=== PATIENT | male | born 1970 | race Two or more races ===

== ENCOUNTER 2021-05-29 15:53 | Inpatient (IN) | payer OTHER ==
[~2021-05-29] VITALS: Ht 170.2 cm; Wt 109.1 kg
[2021-05-29] MEDS ORDERED: normal saline 1000ML IV soln IV ONE (16:30)
[2021-05-29 16:48] LABS: BASOPHILS % (AUTO) 1.5 % (0-1); EOSINOPHILS % (AUTO) 1.3 % (0-6); LYMPHOCYTES # (AUTO) 0.5 X10'3 (1.1-4.8); LYMPHOCYTES % (AUTO) 16.6 % (21-51); MEAN CORPUSCULAR HGB CONC 29.6 g/dL (33.0-36.5); MEAN CORPUSCULAR VOLUME 64.4 FL (78-98); MEAN PLATELET VOLUME 8.5 FL (7.4-10.4); MONOCYTES # (AUTO) 0.4 X10'3 (0-0.9); MONOCYTES % (AUTO) 13.1 % (2-12); NEUTROPHILS # (AUTO) 1.9 X10'3 (1.8-7.7); NEUTROPHILS % (AUTO) 67.5 % (42-75); PLATELET COUNT 85 X10'3 (140-440); RED BLOOD COUNT 2.86 X10'6 (4.70-6.10); RED CELL DISTRIBUTION WIDTH 18.7 % (11.5-14.5); WHITE BLOOD COUNT 2.8 X10'3 (4.5-11.0)
[2021-05-29 16:51] LABS: HEMATOCRIT 18.4 % (42.0-52.0); HEMOGLOBIN 5.4 g/dl (14.0-17.9)
[2021-05-29 17:02] LABS: APTT 27 SECONDS (22-32)
[2021-05-29 17:03] LABS: ALANINE AMINOTRANSFERASE 30 U/L (12-78); ALBUMIN 3.7 G/DL (3.4-5.0); ALBUMIN/GLOBULIN RATIO 0.9 (1.1-1.5); ALKALINE PHOSPHATASE 183 IU/L (46-116); ANION GAP 9 (8-16); ASPARTATE AMINO TRANSFERASE 27 U/L (10-37); BILIRUBIN,TOTAL 0.8 MG/DL (0.1-1.0); BLOOD UREA NITROGEN 7 MG/DL (7-18); BUN/CREATININE RATIO 7.1 (5.4-32.0); CALCIUM 8.3 MG/DL (8.5-10.1); CHLORIDE 95 MMOL/L (99-107); CREATININE 0.99 MG/DL (0.60-1.10); ETHANOL < 0.010 GM/DL (0.0-0.010); GLUCOSE 151 MG/DL (70-104); POTASSIUM 3.8 MMOL/L (3.5-5.1); SODIUM 129 MMOL/L (135-145); TOTAL CARBON DIOXIDE 24.6 MMOL/L (24-32); TOTAL PROTEIN 7.7 G/DL (6.4-8.2); eGFR 79 ML/MIN
[2021-05-29] MEDS ORDERED: ondansetron/PF 4mg/2ml inj IV PRN (17:20)
[2021-05-29] MEDS ORDERED: magnesium 4gm in 100ml NS 100 ML IV PRN (17:20)
[2021-05-29] MEDS ORDERED: potassium CL 10mEq/100ml bag 100 ML IV PRN (17:20)
[2021-05-29] MEDS ORDERED: magnesium 2GM in 50ml NS 50 ML IV PRN (17:20)
[2021-05-29] MEDS ORDERED: magnesium Cl slow-release 64mg tablet PO PRN (17:20)
[2021-05-29] MEDS ORDERED: potassium Cl 20 mEq SR tablet PO PRN ×2 (17:20)
[2021-05-29] MEDS ORDERED: acetaminophen 325mg tablet PO PRN (17:20)
[2021-05-29] MEDS: octreotide inj. 1,250 MCG in normal saline 250ml IV soln 243.75 ML IV SCH ×2 (17:25→19:50)
[2021-05-29] MEDS ORDERED: octreotide inj. 1,250 MCG in normal saline 250ml IV soln 250 ML IV SCH (17:30)
[2021-05-29] MEDS: pantoprazole 40MG/NS 100ML BAG 100 ML IV SCH ×2 (17:55→21:01)
[2021-05-29 17:58] LABS: TOTAL CELLS COUNTED 100
[2021-05-29 17:59] LABS: ANISOCYTOSIS 2+; MICROCYTOSIS 2+; PLATELET ESTIMATE DECREASED
[2021-05-29] MEDS ORDERED: iohexol 300mg/ml 100ml inj. ONE (18:00)
[2021-05-29 18:01] LABS: HYPOCHROMASIA 2+
[2021-05-29 18:02] LABS: POLYCHROMASIA FEW; ROULEAUX 1+; SCHISTOCYTES FEW
[2021-05-29 18:11] LABS: CLARITY,URINE CLEAR (Clear); COLOR,URINE YELLOW (Yellow); GLUCOSE, URINE NEGATIVE (Neg); KETONES,URINE NEGATIVE (Neg); LEUKOCYTE ESTERASE ,URINE NEGATIVE (Neg); NITRITES, URINE NEGATIVE (Neg); OCCULT BLOOD,URINE NEGATIVE (Neg); PROTEIN,URINE NEGATIVE (Neg); UROBILINOGEN,URINE 0.2 E.U/dL (0.2-1.0)
[2021-05-29 18:14] LABS: UA COLLECTION TYPE VOIDED
[2021-05-29 18:20] LABS: URINE AMPHETAMINE SCREEN NEGATIVE (Neg); URINE BARBITUATE SCREEN NEGATIVE (Neg); URINE BENZODIAZEPINES SCREEN NEGATIVE (Neg); URINE CANNABINOID SCREEN NEGATIVE (Neg); URINE COCAINE SCREEN NEGATIVE (Neg); URINE METHADONE SCREEN NEGATIVE (Neg); URINE OPIATE SCREEN NEGATIVE (Neg); URINE PHENCYCLIDINE SCREEN NEGATIVE (Neg)
[2021-05-29] MEDS ORDERED: PERFLUTREN PROTEIN-A MICROSPHR (Optison) 0.22 MG/ML 3ML VIAL IV ONE (18:30)
[2021-05-29] MEDS ORDERED: dextrose ORAL solution 15 GM/59 ML bottle PO PRN ×2 (18:35)
[2021-05-29] MEDS ORDERED: dextrose 50%-water 50ml dispensing syringe IV PRN ×2 (18:35)
[2021-05-29] MEDS ORDERED: MESSAGE TO PHARMACY PO ONE (18:35)
[2021-05-29] MEDS ORDERED: MESSAGE TO NURSING PO ONE (18:35)
[2021-05-29] MEDS ORDERED: glucagon, human recombinant 1mg kit SUBCUT PRN (18:35)
[2021-05-29] MEDS: insulin glargine (Lantus) pen - multi-dose SQ SCH (18:56)
[2021-05-29] MEDS: K and/or MAG REPLACEMENT MC SCH (19:51)
[2021-05-29] MEDS ORDERED: temazepam 15mg capsule PO PRN (21:00)
[2021-05-29] MEDS ORDERED: pantoprazole 40MG/D5 100ML BAG 100 ML IV SCH (21:00)
[2021-05-29] MEDS: barium sulfate 450ml oral suspension PO SCH (21:08)
[2021-05-29] MEDS: normal saline 1000ml 1,000 ML IV SCH (21:30)
[2021-05-29 23:50] VITALS: BP 133/78
[2021-05-30] VITALS (20 sets, daily range): BP systolic 114–151; BP diastolic 57–95
[2021-05-30] MEDS: acetaminophen 325mg tablet PO PRN ×3 (00:50→20:19)
[2021-05-30] MEDS: pantoprazole 40MG/NS 100ML BAG 100 ML IV SCH ×5 (01:35→21:46)
--- NOTE | 2021-05-30 06:30 | NUR ---
Stable throughout the night, no bowel movements. Tolerated 1 unit packed cells, 2nd unit infusing Addendum: 05/30/21 at 0720 by Mandi Aguero RN Noted to have significant sleep apnea
--- NOTE | 2021-05-30 06:40 | NUR ---
Patient in room PCU 3008. I have received report from GINI Raymond and had the opportunity to ask questions and assume patient care.
--- NOTE | 2021-05-30 07:00 | NUR ---
Change of shift report given to Maria Isabel RUBALCAVA Addendum: 05/30/21 at 0730 by Mandi Aguero RN Amended: Links added.
[2021-05-30] MEDS: normal saline 1000ml 1,000 ML IV SCH ×3 (07:36→21:46)
[2021-05-30] MEDS: K and/or MAG REPLACEMENT MC SCH ×2 (08:00→19:28)
[2021-05-30] MEDS: barium sulfate 450ml oral suspension PO SCH ×2 (08:15→09:50)
[2021-05-30] MEDS: insulin Lispro (HumaLOG) vial - multi-dose SQ SCH ×3 (09:31→19:33)
[2021-05-30] MEDS ORDERED: FLU VACC QS2021-22(6MOS UP)/PF 60 MCG/0.5 ML SYRINGE IM ONE (10:00)
[2021-05-30] MEDS ORDERED: SPIR100T5 PO (10:27)
[2021-05-30] MEDS ORDERED: METF-1203 PO (10:27)
[2021-05-30] MEDS ORDERED: PANT40TA54 PO (10:27)
[2021-05-30 10:48] LABS: ALANINE AMINOTRANSFERASE 25 U/L (12-78); ALBUMIN 3.3 G/DL (3.4-5.0); ALBUMIN/GLOBULIN RATIO 0.9 (1.1-1.5); ALKALINE PHOSPHATASE 159 IU/L (46-116); ANION GAP 9 (8-16); ASPARTATE AMINO TRANSFERASE 30 U/L (10-37); BILIRUBIN,TOTAL 1.2 MG/DL (0.1-1.0); BLOOD UREA NITROGEN 6 MG/DL (7-18); BUN/CREATININE RATIO 6.5 (5.4-32.0); CALCIUM 7.9 MG/DL (8.5-10.1); CHLORIDE 95 MMOL/L (99-107); CREATININE 0.93 MG/DL (0.60-1.10); GLUCOSE 191 MG/DL (70-104); POTASSIUM 3.9 MMOL/L (3.5-5.1); SODIUM 128 MMOL/L (135-145); TOTAL CARBON DIOXIDE 23.9 MMOL/L (24-32); TOTAL PROTEIN 6.8 G/DL (6.4-8.2); eGFR 85 ML/MIN
--- NOTE | 2021-05-30 11:55 | NUR ---
Diabetes consult: Noted A1C 8.9 currently w/ Tryoid and in isolation. Written DM education w/ RD contact info placed in pt chart. Addendum: 05/30/21 at [address] Amended: Links added.
[2021-05-30 12:16] LABS: BASOPHILS % (AUTO) 1.6 % (0-1); EOSINOPHILS % (AUTO) 0.7 % (0-6); HEMATOCRIT 22.1 % (42.0-52.0); LYMPHOCYTES # (AUTO) 0.6 X10'3 (1.1-4.8); LYMPHOCYTES % (AUTO) 22.4 % (21-51); MEAN CORPUSCULAR HEMOGLOBIN 21.1 PG (27.0-31.0); MEAN CORPUSCULAR HGB CONC 30.5 g/dL (33.0-36.5); MEAN CORPUSCULAR VOLUME 69.3 FL (78-98); MEAN PLATELET VOLUME 8.5 FL (7.4-10.4); MONOCYTES # (AUTO) 0.5 X10'3 (0-0.9); MONOCYTES % (AUTO) 18.6 % (2-12); NEUTROPHILS # (AUTO) 1.5 X10'3 (1.8-7.7); NEUTROPHILS % (AUTO) 56.7 % (42-75); PLATELET COUNT 75 X10'3 (140-440); RED BLOOD COUNT 3.19 X10'6 (4.70-6.10); RED CELL DISTRIBUTION WIDTH 23.4 % (11.5-14.5); WHITE BLOOD COUNT 2.6 X10'3 (4.5-11.0)
[2021-05-30 12:30] LABS: HEMOGLOBIN 6.7 g/dl (14.0-17.9)
[2021-05-30 13:14] LABS: ANISOCYTOSIS 3+; MICROCYTOSIS 2+; PLATELET ESTIMATE DECREASED; TOTAL CELLS COUNTED 100
[2021-05-30 13:22] LABS: HYPOCHROMASIA 2+
[2021-05-30 13:25] LABS: POLYCHROMASIA FEW; ROULEAUX 1+; SCHISTOCYTES FEW
[2021-05-30 13:26] LABS: ELLIPTOCYTES FEW
[2021-05-30] MEDS: piperacillin/tazo 4.5gm/100ml 100 ML IV SCH (17:10)
--- NOTE | 2021-05-30 18:45 | NUR ---
Patient in room PCU 3008. I have received report from Kate RUBALCAVA and had the opportunity to ask questions and assume patient care.
--- NOTE | 2021-05-30 18:50 | NUR ---
Problems reprioritized. Patient report given, questions answered & plan of care reviewed with GINI Chandler.
[2021-05-30] MEDS ORDERED: magnesium hydroxide 30ml (MOM) UD suspension PO ONE (20:05)
[2021-05-30 20:58] LABS: BASOPHILS # (AUTO) 0.1 X10'3 (0-0.2); BASOPHILS % (AUTO) 1.6 % (0-1); EOSINOPHILS % (AUTO) 1.4 % (0-6); HEMATOCRIT 24.9 % (42.0-52.0); HEMOGLOBIN 7.6 g/dl (14.0-17.9); LYMPHOCYTES # (AUTO) 0.8 X10'3 (1.1-4.8); LYMPHOCYTES % (AUTO) 26.2 % (21-51); MEAN CORPUSCULAR HEMOGLOBIN 21.9 PG (27.0-31.0); MEAN CORPUSCULAR HGB CONC 30.5 g/dL (33.0-36.5); MEAN CORPUSCULAR VOLUME 71.6 FL (78-98); MEAN PLATELET VOLUME 8.4 FL (7.4-10.4); MONOCYTES # (AUTO) 0.4 X10'3 (0-0.9); MONOCYTES % (AUTO) 13.6 % (2-12); NEUTROPHILS # (AUTO) 1.9 X10'3 (1.8-7.7); NEUTROPHILS % (AUTO) 57.2 % (42-75); PLATELET COUNT 79 X10'3 (140-440); RED BLOOD COUNT 3.47 X10'6 (4.70-6.10); RED CELL DISTRIBUTION WIDTH 24.6 % (11.5-14.5); WHITE BLOOD COUNT 3.2 X10'3 (4.5-11.0)
[2021-05-30] MEDS: insulin glargine (Lantus) pen - multi-dose SQ SCH (21:00)
[2021-05-30 21:48] LABS: PLATELET ESTIMATE DECREASED
[2021-05-30 21:49] LABS: ANISOCYTOSIS 3+; MICROCYTOSIS 1+; POLYCHROMASIA FEW
[2021-05-30 21:50] LABS: HYPOCHROMASIA 1+; ROULEAUX 1+; SCHISTOCYTES FEW
[2021-05-30 21:51] LABS: ELLIPTOCYTES FEW
--- NOTE | 2021-05-30 21:55 | NUR ---
Pt is NPO after midnight ; no Lantus insulin given
[2021-05-31] VITALS (13 sets, daily range): BP systolic 126–154; BP diastolic 73–92
[2021-05-31] MEDS: piperacillin/tazo 4.5gm/100ml 100 ML IV SCH ×4 (00:24→23:35)
[2021-05-31] MEDS: pantoprazole 40MG/NS 100ML BAG 100 ML IV SCH ×5 (00:34→21:18)
--- NOTE | 2021-05-31 06:45 | NUR ---
Patient report given to Lázaro RUBALCAVA
[2021-05-31 06:54] LABS: BASOPHILS % (AUTO) 1.3 % (0-1); EOSINOPHILS % (AUTO) 1.2 % (0-6); HEMATOCRIT 24.7 % (42.0-52.0); HEMOGLOBIN 7.7 g/dl (14.0-17.9); LYMPHOCYTES # (AUTO) 0.9 X10'3 (1.1-4.8); LYMPHOCYTES % (AUTO) 26.8 % (21-51); MEAN CORPUSCULAR HEMOGLOBIN 22.3 PG (27.0-31.0); MEAN CORPUSCULAR HGB CONC 31.2 g/dL (33.0-36.5); MEAN CORPUSCULAR VOLUME 71.4 FL (78-98); MEAN PLATELET VOLUME 8.4 FL (7.4-10.4); MONOCYTES # (AUTO) 0.4 X10'3 (0-0.9); MONOCYTES % (AUTO) 12.6 % (2-12); NEUTROPHILS # (AUTO) 1.9 X10'3 (1.8-7.7); NEUTROPHILS % (AUTO) 58.1 % (42-75); PLATELET COUNT 77 X10'3 (140-440); RED BLOOD COUNT 3.46 X10'6 (4.70-6.10); WHITE BLOOD COUNT 3.3 X10'3 (4.5-11.0)
[2021-05-31 07:10] LABS: ALANINE AMINOTRANSFERASE 25 U/L (12-78); ALBUMIN 3.1 G/DL (3.4-5.0); ALBUMIN/GLOBULIN RATIO 0.8 (1.1-1.5); ALKALINE PHOSPHATASE 142 IU/L (46-116); ANION GAP 9 (8-16); ASPARTATE AMINO TRANSFERASE 31 U/L (10-37); BILIRUBIN,TOTAL 1.2 MG/DL (0.1-1.0); BLOOD UREA NITROGEN 5 MG/DL (7-18); BUN/CREATININE RATIO 5.4 (5.4-32.0); CALCIUM 7.7 MG/DL (8.5-10.1); CHLORIDE 96 MMOL/L (99-107); CREATININE 0.93 MG/DL (0.60-1.10); GLUCOSE 138 MG/DL (70-104); POTASSIUM 3.9 MMOL/L (3.5-5.1); SODIUM 130 MMOL/L (135-145); TOTAL CARBON DIOXIDE 25.4 MMOL/L (24-32); TOTAL PROTEIN 6.9 G/DL (6.4-8.2); eGFR 85 ML/MIN
[2021-05-31] MEDS: K and/or MAG REPLACEMENT MC SCH ×2 (07:39→19:40)
[2021-05-31] MEDS: normal saline 1000ml 1,000 ML IV SCH ×2 (07:39→19:20)
[2021-05-31 15:43] LABS: BASOPHILS % (AUTO) 0.9 % (0-1); EOSINOPHILS % (AUTO) 0.9 % (0-6); HEMATOCRIT 26.2 % (42.0-52.0); LYMPHOCYTES # (AUTO) 0.7 X10'3 (1.1-4.8); LYMPHOCYTES % (AUTO) 21.9 % (21-51); MEAN CORPUSCULAR HGB CONC 30.6 g/dL (33.0-36.5); MEAN CORPUSCULAR VOLUME 71.9 FL (78-98); MEAN PLATELET VOLUME 8.4 FL (7.4-10.4); MONOCYTES # (AUTO) 0.4 X10'3 (0-0.9); MONOCYTES % (AUTO) 11.9 % (2-12); NEUTROPHILS % (AUTO) 64.4 % (42-75); PLATELET COUNT 86 X10'3 (140-440); RED BLOOD COUNT 3.64 X10'6 (4.70-6.10); RED CELL DISTRIBUTION WIDTH 24.9 % (11.5-14.5); WHITE BLOOD COUNT 3.1 X10'3 (4.5-11.0)
[2021-05-31] MEDS ORDERED: fentaNYL/PF 50MCG/1 ML 2ML syringe ONE (15:59)
[2021-05-31] MEDS ORDERED: diphenhydrAMINE 50 mg/ml inj ONE (15:59)
[2021-05-31] MEDS ORDERED: MIDAZolam 1 MG/ML 5ML VIAL ONE (15:59)
[2021-05-31] MEDS ORDERED: LIDOcaine Viscous 15ml cup ONE (16:00)
[2021-05-31] MEDS: octreotide inj. 1,250 MCG in normal saline 250ml IV soln 243.75 ML IV SCH (17:25)
[2021-05-31] MEDS: insulin glargine (Lantus) pen - multi-dose SQ SCH (19:40)
[2021-06-01] MEDS: pantoprazole 40MG/NS 100ML BAG 100 ML IV SCH ×2 (02:35→07:55)
[2021-06-01] MEDS: normal saline 1000ml 1,000 ML IV SCH ×2 (05:04→10:12)
[2021-06-01 06:00] VITALS: BP 125/65
[2021-06-01 07:00] VITALS: BP 119/79
[2021-06-01 07:25] LABS: BASOPHILS % (AUTO) 0.6 % (0-1); EOSINOPHILS % (AUTO) 1.1 % (0-6); HEMATOCRIT 25.9 % (42.0-52.0); HEMOGLOBIN 7.9 g/dl (14.0-17.9); LYMPHOCYTES # (AUTO) 0.8 X10'3 (1.1-4.8); MEAN CORPUSCULAR HGB CONC 30.4 g/dL (33.0-36.5); MEAN CORPUSCULAR VOLUME 72.2 FL (78-98); MEAN PLATELET VOLUME 8.2 FL (7.4-10.4); MONOCYTES # (AUTO) 0.7 X10'3 (0-0.9); MONOCYTES % (AUTO) 16.1 % (2-12); NEUTROPHILS # (AUTO) 2.6 X10'3 (1.8-7.7); NEUTROPHILS % (AUTO) 62.2 % (42-75); PLATELET COUNT 86 X10'3 (140-440); RED BLOOD COUNT 3.58 X10'6 (4.70-6.10); RED CELL DISTRIBUTION WIDTH 25.4 % (11.5-14.5); WHITE BLOOD COUNT 4.2 X10'3 (4.5-11.0)
[2021-06-01 07:49] LABS: ALANINE AMINOTRANSFERASE 26 U/L (12-78); ALBUMIN 3.2 G/DL (3.4-5.0); ALBUMIN/GLOBULIN RATIO 0.8 (1.1-1.5); ALKALINE PHOSPHATASE 137 IU/L (46-116); ANION GAP 9 (8-16); ASPARTATE AMINO TRANSFERASE 32 U/L (10-37); BILIRUBIN,TOTAL 0.9 MG/DL (0.1-1.0); BLOOD UREA NITROGEN 4 MG/DL (7-18); BUN/CREATININE RATIO 4.6 (5.4-32.0); CALCIUM 7.6 MG/DL (8.5-10.1); CHLORIDE 99 MMOL/L (99-107); CREATININE 0.87 MG/DL (0.60-1.10); GLUCOSE 152 MG/DL (70-104); POTASSIUM 3.8 MMOL/L (3.5-5.1); SODIUM 134 MMOL/L (135-145); TOTAL CARBON DIOXIDE 26.4 MMOL/L (24-32); TOTAL PROTEIN 7.2 G/DL (6.4-8.2); eGFR > 90 ML/MIN
[2021-06-01] MEDS: piperacillin/tazo 4.5gm/100ml 100 ML IV SCH (07:55)
[2021-06-01] MEDS: K and/or MAG REPLACEMENT MC SCH (08:00)
[2021-06-01 10:56] LABS: TOTAL CELLS COUNTED 100
[2021-06-01 10:57] LABS: ANISOCYTOSIS 3+; GIANT PLATELET FEW; HYPOCHROMASIA 2+; MICROCYTOSIS 1+; PLATELET ESTIMATE DECREASED
[2021-06-01 10:58] LABS: ELLIPTOCYTES 1+
[2021-06-01 10:59] LABS: POLYCHROMASIA FEW; TEAR DROP CELLS FEW
[2021-06-01 11:00] VITALS: BP 128/88
[2021-06-01] MEDS: insulin Lispro (HumaLOG) vial - multi-dose SQ SCH (13:25)
--- NOTE | 2021-06-01 14:30 | NUR ---
discharge instructions was given and explained to patient prior to discharge. iv access discontinued with iv cannula complete and intact
[2021-06-01] MEDS ORDERED: pantoprazole 40mg Tablet.DR PO SCH (20:00)
== END 2021-06-01 14:47 | disposition home or self-care (01) | DRG 368 ==
LOC: ER 15:54 → UNDOADMIN 17:16 → ED HOLD 17:16 → EDBEDREQ 21:37 → PCU 3S 23:30 → ED HOLD 23:30
PROVIDERS: ADMIT Internal Medicine; ATTEND Internal Medicine
PROC: BW211ZZ Computerized Tomography (CT Scan) of Abdomen and Pelvis using Low Osmolar Contrast (ICD-10-PCS; 2021-05-29)
PROC: 30233N1 Transfusion of Nonautologous Red Blood Cells into Peripheral Vein, Percutaneous Approach (ICD-10-PCS; 2021-05-30)
PROC: 0DB68ZX Excision of Stomach, Via Natural or Artificial Opening Endoscopic, Diagnostic (ICD-10-PCS; principal; 2021-05-31)
DX: I85.01 Esophageal varices with bleeding (principal); U07.1 COVID-19; D61.818 Other pancytopenia; E87.1 Hypo-osmolality and hyponatremia; I50.32 Chronic diastolic (congestive) heart failure; D62 Acute posthemorrhagic anemia; K29.71 Gastritis, unspecified, with bleeding; K29.81 Duodenitis with bleeding; E11.9 Type 2 diabetes mellitus without complications; E66.01 Morbid (severe) obesity due to excess calories; F10.21 Alcohol dependence, in remission; I11.0 Hypertensive heart disease with heart failure; I86.4 Gastric varices; K70.30 Alcoholic cirrhosis of liver without ascites; R19.7 Diarrhea, unspecified; Z28.21 Immunization not carried out because of patient refusal; Z68.37 Body mass index [BMI] 37.0-37.9, adult
CPT/HCPCS: 36415; 36430; 43239; 71045; 74176; 74177; 80053; 80305; 80320; 81003; 82948; 83036; 83605; 84145; 85007; 85008; 85025; 85610; 85730; 86885; 86900; 86901; 86920; 87040; 87081; 87635; 93005; 93306; 99152; 99291; A4620; C9113; C9803; G0378; J1200; J1815; J2250; J2354; J2543; J3010; J7030; J7040; J7050; P9016; Q9967